=== PATIENT | female | born 1945 | race Caucasian/White ===

== ENCOUNTER 2018-07-26 14:28 | Inpatient (IN) | payer MEDICARE ==
[2018-07-26] MEDS ORDERED: SODIUM CHLORIDE 0.9% 1,000 ML IV STA ×2 (15:09)
[2018-07-26] MEDS ORDERED: ONDANSETRON 4 MG/2 ML VIAL IVP STA (15:09)
[2018-07-26] MEDS ORDERED: PANTOPRAZOLE 40 MG/10 ML VIAL IVP STA (15:10)
--- NOTE | 2018-07-26 15:10 | ED ---
Nausea/Vomiting/Diarrhea HPI - General Chief complaint: Nausea/Vomiting/Diarrhea Stated complaint: Vomiting Time Seen by Provider: 07/26/18 15:09 Source: patient, RN notes reviewed, old records reviewed Mode of arrival: wheelchair Limitations: no limitations - History of Present Illness Initial comments: This is a 72-year-old female the ER for evaluation. Patient resents today for no appetite nausea vomiting and diarrhea. Patient is recent travel history no known sick contacts no fevers. Patient currently states that she does not feel well patient's a poor historian secondary to dementia family is at bedside providing history states patient has multiple recent falls resulting in multiple fractures, was evaluated for a fall earlier in the week and was told no fracture at the time. Again patient's poor historian MD complaint: nausea, vomiting -: days(s) Description of Vomiting: watery Associated Abdominal Pain: Yes Severity: moderate Severity scale (1-10): 3 Quality: aching Improves with: none Worsens with: eating Associated Symptoms: denies other symptoms - Related Data Home Medications Medication Instructions Recorded Confirmed Albuterol Inhaler [Ventolin Hfa 1 - 2 puff INHALATION RT-Q6H PRN 07/26/18 Inhaler] Alendronate Sodium 70 mg PO WE 07/26/18 07/26/18 Donepezil [Aricept] 10 mg PO HS 07/26/18 07/26/18 Ergocalciferol (Vitamin D2) 50,000 unit PO WE 07/26/18 07/26/18 [Vitamin D2] Fluticasone Nasal [place] [Flonase 2 spr EA NOSTRIL DAILY PRN 07/26/18 07/26/18 Nasal [place]] Memantine [Namenda] 10 mg PO BID 07/26/18 07/26/18 Metoprolol Succinate (ER) [Toprol 50 mg PO BID 07/26/18 07/26/18 Xl] Ranitidine HCl [Zantac] 150 mg PO DAILY 07/26/18 07/26/18 Rivaroxaban [Xarelto] 15 mg PO BID 07/26/18 07/26/18 metFORMIN HCL ER [Glucophage Xr] 500 mg PO AC-BRKFST 07/26/18 07/26/18 Allergies Allergy/AdvReac Type Severity Reaction Status Date / Time clarithromycin Allergy Rash/Hives Verified 07/26/18 16:24 exenatide Allergy Rash/Hives Verified 07/26/18 16:24 lidocaine Allergy Rapid Verified 07/26/18 16:24 Heart Rate Sulfa (Sulfonamide Allergy Rash/Hives Verified 07/26/18 16:24 Antibiotics) tetracycline Allergy Rash/Hives Verified 07/26/18 16:24 trimethoprim Allergy Rash/Hives Verified 07/26/18 16:24 Review of Systems ROS Statement: Those systems with pertinent positive or pertinent negative responses have been documented in the HPI. ROS Other: All systems not noted in ROS Statement are negative. Past Medical History Additional Past Medical History / Comment(s): CLL, Dementia History of Any Multi-Drug Resistant Organisms: None Reported Past Surgical History: Cholecystectomy, Coronary Bypass/CABG, Orthopedic Surgery Past Psychological History: No Psychological Hx Reported Smoking Status: Never smoker Past Alcohol Use History: None Reported Past Drug Use History: None Reported General Exam Limitations: no limitations General appearance: alert, in no apparent distress Head exam: Present: atraumatic, normocephalic, normal inspection Eye exam: Present: normal appearance, PERRL, EOMI. Absent: scleral icterus, conjunctival injection, periorbital swelling ENT exam: Present: normal exam, mucous membranes moist Neck exam: Present: normal inspection. Absent: tenderness, meningismus, lymphadenopathy Respiratory exam: Present: normal lung sounds bilaterally. Absent: respiratory distress, wheezes, rales, rhonchi, stridor Cardiovascular Exam: Present: regular rate, normal rhythm, normal heart sounds. Absent: systolic murmur, diastolic murmur, rubs, gallop, clicks GI/Abdominal exam: Present: soft, normal bowel sounds. Absent: distended, tenderness, guarding, rebound, rigid Extremities exam: Present: normal inspection, full ROM, normal capillary refill. Absent: tenderness, pedal edema, joint swelling, calf tenderness Back exam: Present: normal inspection Neurological exam: Present: alert, oriented X3, CN II-XII intact Psychiatric exam: Present: normal affect, normal mood Skin exam: Present: warm, dry, intact, normal color. Absent: rash Course Vital Signs 07/26/18 14:58 Temperature 98.5 F Pulse Rate 79 Respiratory 18 Rate Blood Pressure 163/69 O2 Sat by Pulse 97 Oximetry - Reevaluation(s) Reevaluation #1: 07/26/18 16:11 Medical record is reviewed Reevaluation #2: 07/26/18 16:11 Patient symptoms are improved Medical Decision Making - Medical Decision Making 72 female the ER for status post multiple falls. Weakness. Patient will be admitted for nausea vomiting control IV hydration and pain control secondary to recent T11 fracture - Lab Data Result diagrams: 07/26/18 16:20 07/26/18 16:20 Lab Results 07/26/18 07/26/18 07/26/18 Range/Units 16:20 16:20 16:20 WBC 17.3 H (3.8-10.6) k/uL RBC 4.47 (3.80-5.40) m/uL Hgb 13.1 (11.4-16.0) gm/dL Hct 41.0 (34.0-46.0) % MCV 91.7 (80.0-100.0) fL MCH 29.2 (25.0-35.0) pg MCHC 31.9 (31.0-37.0) g/dL RDW 13.1 (11.5-15.5) % Plt Count 212 (150-450) k/uL Neutrophils % 39 % Lymphocytes % 55 % Monocytes % 2 % Eosinophils % 2 % Basophils % 1 % Neutrophils # 6.8 (1.3-7.7) k/uL Lymphocytes # 9.4 H (1.0-4.8) k/uL Monocytes # 0.4 (0-1.0) k/uL Eosinophils # 0.3 (0-0.7) k/uL Basophils # 0.1 (0-0.2) k/uL Manual Slide Review Performed Sodium 141 (137-145) mmol/L Potassium 3.9 (3.5-5.1) mmol/L Chloride 102 (98-107) mmol/L Carbon Dioxide 30 (22-30) mmol/L Anion Gap 9 mmol/L BUN 24 H (7-17) mg/dL Creatinine 1.05 H (0.52-1.04) mg/dL Est GFR (CKD-EPI)AfAm 62 (>60 ml/min/1.73 sqM) Est GFR (CKD-EPI)NonAf 54 (>60 ml/min/1.73 sqM) Glucose 124 H (74-99) mg/dL Calcium 9.4 (8.4-10.2) mg/dL Phosphorus 4.0 (2.5-4.5) mg/dL Magnesium 1.4 L (1.6-2.3) mg/dL Total Bilirubin 0.7 (0.2-1.3) mg/dL AST 28 (14-36) U/L ALT 16 (9-52) U/L Alkaline Phosphatase 112 (38-126) U/L Total Protein 6.9 (6.3-8.2) g/dL Albumin 4.0 (3.5-5.0) g/dL Lipase 55 (23-300) U/L Urine Color Light Yellow Urine Appearance Clear (Clear) Urine pH 5.0 (5.0-8.0) Ur Specific [place] 1.012 (1.001-1.035) Urine Protein Trace H (Negative) Urine Glucose (UA) Negative (Negative) Urine Ketones Trace H (Negative) Urine Blood Trace H (Negative) Urine Nitrite Negative (Negative) Urine Bilirubin Negative (Negative) Urine Urobilinogen <2.0 (<2.0) mg/dL Ur Leukocyte Esterase Negative (Negative) Urine RBC 1 (0-5) /hpf Urine WBC 5 (0-5) /hpf Ur Squamous Epith Cells 1 (0-4) /hpf Cellular Casts 1 (0) /lpf Hyaline Casts 23 H (0-2) /lpf Urine Mucus Rare H (None) /hpf - Radiology Data Radiology results: report reviewed (CT lumbosacral spine is acute T11 fracture) , image reviewed Disposition Clinical Impression: Dehydration, Gastroenteritis, Nausea and vomiting, Fracture of eleventh thoracic vertebra, Fall Disposition: ADMITTED IP TO THIS HOSP Condition: Fair Is patient prescribed a controlled substance at d/c from ED?: No Referrals: New Smith MD [Primary Care Provider] - 1-2 days
[2018-07-26] MEDS ORDERED: MORPHINE SULFATE 4 MG/ML SYRINGE IVP STA (15:36)
[2018-07-26 16:42] LABS: Basophils # (A) 0.1 k/uL (0-0.2); Basophils % (A) 1 %; Eosinophils # (A) 0.3 k/uL (0-0.7); Eosinophils % (A) 2 %; HGB 13.1 gm/dL (11.4-16.0); Lymphocytes # (A) 9.4 k/uL (1.0-4.8); Lymphocytes % (A) 55 %; MCH 29.2 pg (25.0-35.0); MCHC 31.9 g/dL (31.0-37.0); MCV 91.7 fL (80.0-100.0); Mean Platelet Volume 6.4; Monocytes # (A) 0.4 k/uL (0-1.0); Monocytes % (A) 2 %; Neutrophils # (A) 6.8 k/uL (1.3-7.7); Neutrophils % (A) 39 %; Platelet Count 212 k/uL (150-450); RBC 4.47 m/uL (3.80-5.40); RDW 13.1 % (11.5-15.5); WBC 17.3 k/uL (3.8-10.6)
[2018-07-26 16:44] LABS: Appearance,Urine Clear (Clear); Bilirubin,Urine Negative (Negative); Blood,Urine Trace (Negative); Cellular Casts,Urine 1 /lpf (0); Color,Urine Light Yellow; Glucose,Urine (UA) Negative (Negative); Hyaline Casts,Urine 23 /lpf (0-2); Ketones,Urine Trace (Negative); Leukocyte Esterase,Urine Negative (Negative); Mucus,Urine Rare /hpf; Nitrite,Urine Negative (Negative); Protein,Urine Trace (Negative); RBC,Urine 1 /hpf (0-5); Specific Gravity,Urine 1.012 (1.001-1.035); Squamous Epithelial Cell,Urine 1 /hpf (0-4); Urobilinogen,Urine <2.0 mg/dL (<2.0)
[2018-07-26 16:59] LABS: Calcium 9.4 mg/dL (8.4-10.2); Magnesium 1.4 mg/dL (1.6-2.3); Potassium 3.9 mmol/L (3.5-5.1); Total Bilirubin 0.7 mg/dL (0.2-1.3); Total Protein 6.9 g/dL (6.3-8.2)
--- NOTE | 2018-07-26 18:04 | CT ---
EXAMINATION TYPE: CT lumbar spine wo con DATE OF EXAM: 07/26/2018 COMPARISON: None HISTORY: Fall 1 week ago per patient daughter CT DLP: 887.9 mGycm CONTRAST: None TECHNIQUE: CT of the lumbar spine is performed on a spiral scan at 3 mm thick sections. Reconstructed images are performed in the coronal and sagittal planes. Pedicle screws at T10-11 and 12 causes sanjeev m hardening artifact and limited evaluation. FINDINGS: T10-11: No focal disc herniation or significant disc bulge is evident. No spinal canal stenosis or ne ural foraminal stenosis is present. Pedicle screws are present. T11: There is a severe compression deformity of T11. There is an estimated 0.5 cm posterior wall disp lacement. No definite cord contact is identified. Spinal canal stenosis is not present. T11-12: No focal disc herniation or significant disc bulge is evident. No spinal canal stenosis or ne ural foraminal stenosis present. Pedicle screws are present T12-L1: No focal disc herniation or significant disc bulge is evident. No spinal canal stenosis or ne ural foraminal stenosis is present. L1-L2: No focal disc herniation or significant disc bulge is evident. No spinal canal stenosis or angie ral foraminal stenosis is present. L2-L3: Mild disc bulge is present with anterior thecal sac compression. No spinal canal stenosis or n eural foraminal stenosis is. L3-L4: Mild disc bulge is present with anterior thecal sac flattening. No spinal canal stenosis or ne ural foraminal stenosis is present. L4-L5: Disc uncovering is present. Minimal grade 1 spondylolisthesis may be present. No spinal canal stenosis is present. There is some right foraminal narrowing inferiorly. Left foramen is patent. L5-S1: Endplate spurring has anterior thecal sac contact. No AP spinal canal stenosis is present. Sev ere left foraminal stenosis is present from endplate spurring. Right foramen is patent. Scoliosis is present through the lumbar spine. IMPRESSION: 1. Severe compression deformity of T11 there is a 0.5 cm posterior wall displacement. Comparison to e valuate for interval change is not available at this location. 2. Severe left foraminal stenosis L5-S1 secondary to endplate spurring. 3. There is some mild disc bulging discussed above with anterior thecal sac contact questionable clin ical significance.
--- NOTE | 2018-07-26 18:06 | CT ---
EXAMINATION TYPE: CT sacrum wo con DATE OF EXAM: 07/26/2018 COMPARISON: No available at this location. Lumbar portion is evaluated on the CT lumbar spine. HISTORY: Fall 1 week ago per patient daughter CT DLP: 887.9 mGycm Automated exposure control for dose reduction was used. TECHNIQUE: Axial images were obtained at 3 mm thick sections. Reconstructed images in the coronal and sagittal plane are reviewed on the computer. FINDINGS: The L5-S1 level and more superiorly is evaluated on the lumbar spine images. Sacrum appears intact. No acute fractures are evident. Sacral canal appears patent. Coccyx as visuali zed appears intact. Sacroiliac joint degenerative changes are noted. IMPRESSION: NORMAL CT SACRUM.
[2018-07-26] MEDS ORDERED: MAGNESIUM OXIDE 400 MG TAB PO STA (18:10)
[2018-07-26] MEDS ORDERED: MORPHINE SULFATE 2 MG/ML SYRINGE IVP STA (18:43)
[2018-07-26] MEDS ORDERED: DEXTROSE 5%-0.45% NACL 1,000 ML IV ONE (18:53)
[2018-07-26] MEDS ORDERED: MORPHINE SULFATE 2 MG/ML SYRINGE IVP PRN (18:53)
[2018-07-26] MEDS ORDERED: ONDANSETRON 4 MG/2 ML VIAL IVP PRN (18:54)
[2018-07-26 21:47] VITALS: BMI 43.2
[2018-07-27] MEDS ORDERED: ALBUTEROL NEBULIZED 2.5 MG/3 ML INHALATION PRN (00:07)
[2018-07-27] MEDS ORDERED: FLUTICASONE 50MCG/SPRAY NASAL 16GM EA NOSTRIL PRN (00:07)
[2018-07-27 00:14] LABS: Glucose,Whole Blood 101 mg/dL (75-99)
[2018-07-27 04:36] LABS: Glucose,Whole Blood 99 mg/dL (75-99)
[2018-07-27 07:59] LABS: Glucose,Whole Blood 107 mg/dL (75-99)
--- NOTE | 2018-07-27 08:34 | HP ---
HISTORY AND PHYSICAL DATE OF SERVICE: 07/26/2018 CHIEF COMPLAINT: Fall and back pain. HISTORY OF PRESENT ILLNESS: This 72-year-old woman with past medical history of multiple medical problems including history of diabetes mellitus, chronic leukemia, history of dementia, cholecystectomy, CAD, CABG, anxiety, depression being followed by Dr. Nirmal Smith in the outpatient setting apparently had multiple falls at home. The patient complains of weakness and patient fell and patient complaining of back pain. Patient had dementia and the family took the patient to [facility] and further evaluation. Lumbar spine CAT scan was done which showed evidence of severe compression fracture at T11 with posterior wall displacement, severe left foraminal stenosis L5-S1 was also noted. Patient was admitted for further evaluation and treatment. There is no history of any fever, rigors. No history of headache, loss of consciousness or seizures. A CT of the sacrum was also done, which showed normal findings. There is no history of fever, rigors or chills. The patient is unable to give coherent history. Most of the history is taken by my discussion with staff and review of this chart at this time. PAST MEDICAL HISTORY: Diabetes mellitus type 2, CLL, dementia, CAD CABG, history of anxiety, depression. MEDICATIONS: Home medications are reviewed include: 1. Metformin 500 mg with breakfast. 2. Xarelto 15 mg b.i.d. 3. Zantac 150 mg daily. 4. Toprol XL 50 mg b.i.d. 5. Namenda 10 mg b.i.d. 6. Flonase daily p.r.n. 7. Vitamin D2; 50,000 8. Aricept 10 mg q.h.s. 9. Alendronate sodium 70 mg 10.Albuterol p.r.n. ALLERGIES: Allergies are CLARITHROMYCIN, EXENATIDE, LATEX, LIDOCAINE,SULFA, TETRACYCLINE, TRIMETHOPRIM. FAMILY HISTORY: History of diabetes, dementia, Alzheimer's. SOCIAL HISTORY: No history of smoking. No history of alcohol intake. REVIEW OF SYSTEMS: Could not be taken at length because of the change in mental status. PHYSICAL EXAMINATION: The patient is conscious, but confused. Pulse is 69, pressure 155/63, respirations 16, temperature 98.6, pulse ox 98% on room air. HEENT: Conjunctivae normal. Oral mucosa moist. Neck is no jugular venous distention. No carotid bruit. No lymph node enlargement. CARDIOVASCULAR: S1, S2 muffled. RESPIRATORY: Breath sounds diminished at the bases. A few scattered rhonchi and crackles. ABDOMEN: Soft, nontender. No mass palpable. LEGS: No edema. No swelling. NERVOUS SYSTEM: Higher functions as mentioned. Moves all 4 limbs. No focal motor or sensory deficit. LYMPHATICS: No lymphadenopathy of the neck, axillae or groin. SKIN: No ulcer, rash or bleeding. JOINTS: No active deforming arthropathy. LABS: Labs are at this time shows WBC 17.3, hemoglobin 13.1. is 1.05. Magnesium 1.4. ASSESSMENT: 1. Fall and back pain and compression fracture of the T11. 2. Severe degenerative joint disease with left foraminal stenosis L5-S1. 3. Dementia. 4. Change in mental status, metabolic encephalopathy, acute on chronic. 5. Diabetes mellitus type 2. 6. Chronic leukemia. 7. History of coronary artery disease, CABG. 8. History of degenerative joint disease. 9. History of cholecystectomy. 10.Anxiety, depression. 11.Hypomagnesemia. RECOMMENDATIONS AND DISCUSSION: This 72-year-old woman who presented with multiple complex medical issues, will monitor the patient closely. Continue the current medications. Continue symptomatic treatment. Otherwise at this time, I would recommend pain medications, orthopedic evaluation, PT, OT evaluation. gas worker to evaluate the home situation. Prognosis guarded because of multiple complex medical issues as mentioned earlier. Further management to follow. A copy of dictation forwarded to Dr. Nirmal Smith who is the primary physician. Will replace the magnesium. MMODL / IJN: [id number] / [facility]
[2018-07-27] MEDS ORDERED: PANTOPRAZOLE 40 MG/10 ML VIAL IVP SCH (09:00)
[2018-07-27] MEDS: METOPROLOL SUCCINATE (ER) 50 MG TAB.ER.24H PO SCH ×2 (09:01→22:15)
[2018-07-27] MEDS: metFORMIN 500 MG TAB PO SCH ×2 (09:01→17:48)
[2018-07-27] MEDS: MEMANTINE 10 MG TAB PO SCH ×2 (09:01→22:15)
[2018-07-27] MEDS: ENOXAPARIN 40 MG/0.4 ML SYRINGE SQ SCH (09:01)
[2018-07-27] MEDS: FAMOTIDINE 20 MG TAB PO SCH (09:01)
[2018-07-27] MEDS ORDERED: HYDROcodone/APAP 5-325MG 1 EACH TAB PO PRN (10:23)
[2018-07-27] MEDS ORDERED: Magnesium Replacement Protocol 1 EACH MISC MISCELLANE PRN (10:24)
[2018-07-27 12:57] LABS: HCT 33.7 % (34.0-46.0); HGB 11.2 gm/dL (11.4-16.0); MCH 30.7 pg (25.0-35.0); MCHC 33.2 g/dL (31.0-37.0); MCV 92.5 fL (80.0-100.0); Mean Platelet Volume 7.3; Platelet Count 163 k/uL (150-450); RBC 3.64 m/uL (3.80-5.40); RDW 13.2 % (11.5-15.5); WBC 12.3 k/uL (3.8-10.6)
[2018-07-27 13:10] LABS: Calcium 8.9 mg/dL (8.4-10.2); Magnesium 1.4 mg/dL (1.6-2.3); Potassium 3.6 mmol/L (3.5-5.1)
[2018-07-27] MEDS ORDERED: hydrALAZINE HCL 20 MG/ML 1 ML VIAL IVP PRN (15:43)
[2018-07-27] MEDS: MAGNESIUM SULFATE-D5W PMX 1 GM in DEXTROSE/WATER 1 100ML.BAG IVPB SCH ×3 (15:59→18:52)
[2018-07-27] MEDS: KETOROLAC 30 MG/ML 1 ML VIAL IVP PRN (16:39)
--- NOTE | 2018-07-27 20:22 | PN ---
PROGRESS NOTE DATE OF SERVICE: 07/27/2018 This 72-year-old woman who was admitted with fall and back pain has been closely monitored. No chest pain. No palpitations. No fever. Lumbar spine CAT scan noted. EXAM: Alert and oriented x3. Pulse is 95, blood pressure 195/81, respirations 16, temperature 97.4, pulse ox 98% on room air. HEENT: Conjunctivae normal. NECK: No jugular venous distention. CARDIOVASCULAR: S1, S2. RESPIRATORY: Breath sounds diminished in the bases. A few scattered rhonchi. No crackles. ABDOMEN: Soft, nontender. LEGS: No edema. NERVOUS SYSTEM: Mild diffuse weakness. LABS: WBC 12.2, hemoglobin 11.2. UA noted. Otherwise glucose 123 and magnesium is 1.4. ASSESSMENT: 1. Fall and back pain with compression fracture of T11. 2. Severe degenerative joint disease with foraminal stenosis of L5-S1. 3. Dementia. 4. Hypomagnesemia. 5. History of change in mental status, metabolic encephalopathy, acute on chronic. 6. Diabetes mellitus type 2. 7. Chronic leukemia. 8. History of coronary artery disease, CABG. 9. History of degenerative joint disease. 10.History of cholecystectomy. 11.Anxiety and depression. 12.Gait dysfunction. 13.Hypomagnesia. 14.Gait dysfunction. 15.NO CODE, NO CPR, NO VENT. RECOMMENDATIONS AND DISCUSSION: This 72-year-old woman who presented with multiple complex medical issues, we will monitor the patient closely. Continue the current management and symptomatic treatment. Continue with magnesium protocol. Otherwise also recommend PT, OT evaluation and consider possible ECF rehab. Otherwise, the patient is from a shelter. Discussed with her friends and the daughter has power of well driller helper. We will continue to monitor. Dr. Ron's evaluation is in progress. Further recommendations to follow. MMODL / IJN: [id number] /
[2018-07-27] MEDS ORDERED: DONEPEZIL 10 MG TAB PO SCH (21:00)
[2018-07-27 21:19] LABS: Glucose,Whole Blood 121 mg/dL (75-99)
--- NOTE | 2018-07-27 22:05 | P.CNOR ---
History of Present Illness - [facility] Consult date: 07/27/18 Requesting physician: Zeinab Duron Consult reason: back pain (Thoracic back pain), other History of present illness: Patient is a very pleasant 72-year-old female who is seen and examined at bedside for further evaluation regards to her thoracic spine. Patient is known to have dementia and is a poor historian. She is very pleasant at the bedside and does attempt to answer questions appropriately. She was brought to the emergency department yesterday, 07/26/2018, for nausea, vomiting, diarrhea, and no appetite. Per ER documentation, family had stated patient had been falling multiple times recently resulting in multiple fractures. Patient was previously evaluated earlier in the week and was told there is no fractures at that time. CT of the sacrum and lumbar spine was performed during her evaluation in the ER. Evidence of a T11 compression fracture deformity was found. She is known to have previously undergone Thoracic spine fusion at T10- 11 and T11-12 with hardware intact. She states she does recall previous surgical intervention at her thoracic spine but is unaware of any of the details. Consultation was placed for orthopedic spine. Patient states at the bedside she is not currently experiencing any significant back pain in her thoracic spine or lumbar spine. She denies any lower extremity weakness or radiculopathy bilaterally. She is moving her legs independently in bed without difficulty. She is nauseous at the bedside today. Nursing states patient is currently being worked up for gastritis. She also has elevated blood pressure currently and medicine is being contacted by nursing. She has a past medical history including diabetes mellitus, dementia, and chronic lymphoid leukemia. Past Medical History Past Medical History: Diabetes Mellitus Additional Past Medical History / Comment(s): CLL, Dementia History of Any Multi-Drug Resistant Organisms: None Reported Past Surgical History: Cholecystectomy, Coronary Bypass/CABG, Orthopedic Surgery Additional Past Surgical History / Comment(s): july rt hip fx, october lt femur 2017 Past Psychological History: Anxiety, Depression Smoking Status: Never smoker Past Alcohol Use History: None Reported Past Drug Use History: None Reported - Past Family History Mother Family Medical History: Diabetes Mellitus Additional Family Medical History / Comment(s): dementia alzheimers Father Family Medical History: Diabetes Mellitus Additional Family Medical History / Comment(s): dementia alzheimers Medications and Allergies Home Medications Medication Instructions Recorded Confirmed Type Albuterol Inhaler [Ventolin Hfa 1 - 2 puff INHALATION RT-Q6H PRN 07/26/18 History Inhaler] Alendronate Sodium 70 mg PO WE 07/26/18 07/26/18 History Donepezil [Aricept] 10 mg PO HS 07/26/18 07/26/18 History Ergocalciferol (Vitamin D2) 50,000 unit PO WE 07/26/18 07/26/18 History [Vitamin D2] Fluticasone Nasal [place] [Flonase 2 spr EA NOSTRIL DAILY PRN 07/26/18 07/26/18 History Nasal [place]] Memantine [Namenda] 10 mg PO BID 07/26/18 07/26/18 History Metoprolol Succinate (ER) [Toprol 50 mg PO BID 07/26/18 07/26/18 History Xl] Ranitidine HCl [Zantac] 150 mg PO DAILY 07/26/18 07/26/18 History Rivaroxaban [Xarelto] 15 mg PO BID 07/26/18 07/26/18 History metFORMIN HCL ER [Glucophage Xr] 500 mg PO AC-BRKFST 07/26/18 07/26/18 History Allergies Allergy/AdvReac Type Severity Reaction Status Date / Time clarithromycin Allergy Rash/Hives Verified 07/26/18 16:24 exenatide Allergy Rash/Hives Verified 07/26/18 16:24 latex Allergy Rash/Hives Verified 07/26/18 21:48 lidocaine Allergy Rapid Verified 07/26/18 16:24 Heart Rate Sulfa (Sulfonamide Allergy Rash/Hives Verified 07/26/18 16:24 Antibiotics) tetracycline Allergy Rash/Hives Verified 07/26/18 16:24 trimethoprim Allergy Rash/Hives Verified 07/26/18 16:24 Physical Examination Physical exam: Patient is awake, alert, and oriented 3 Vital signs stable Good chest excursion with deep inspiration and expiration Examination of thoracolumbar spine reveals skin is intact with no abrasions, lacerations, or bruises; no erythema, purulence or signs of infection Evidence of a well-healed incision along the lower thoracic spine Dorsiflexion, plantarflexion, and extensor hallucis longus positive sustained bilaterally Lower extremity strength 5/5 bilaterally Patient is able to move legs independently in bed without significant difficulty No lower extremity hyperreflexia bilaterally No signs or symptoms of DVT; no calf pain No pain with internal and external rotation of the hips bilaterally Neurovascularly intact Results Pertinent studies: CT of the lumbar spine taken on 07/26/2018: Evidence of pedicle screws at T10, T11, and T12 which appear to be appropriate alignment and position; rods between pedicle screws appear to be in good alignment and position; Hardware appears well sceure; Evidence of T11 compression fracture deformity that appears chronic in nature; no evidence of compression fracture deformity at the lumbosacral spine; L5-S1 degenerative disc disease and left foraminal stenosis CT of the sacrum taken on 07/26/2018: Normal sacrum CT; no acute fractures evident; Patent sacral canal; Visualized coccyx appears intact; sacroiliac joint degenerative changes noted - Labs Labs: Abnormal Lab Results - Last 24 Hours (Table) 07/26/18 07/26/18 07/26/18 Range/Units 16:20 16:20 16:20 WBC 17.3 H (3.8-10.6) k/uL RBC (3.80-5.40) m/uL Hgb (11.4-16.0) gm/dL Hct (34.0-46.0) % Lymphocytes # 9.4 H (1.0-4.8) k/uL Carbon Dioxide (22-30) mmol/L BUN 24 H (7-17) mg/dL Creatinine 1.05 H (0.52-1.04) mg/dL Glucose 124 H (74-99) mg/dL POC Glucose (mg/dL) (75-99) mg/dL Magnesium 1.4 L (1.6-2.3) mg/dL Urine Protein Trace H (Negative) Urine Ketones Trace H (Negative) Urine Blood Trace H (Negative) Hyaline Casts 23 H (0-2) /lpf Urine Mucus Rare H (None) /hpf 07/27/18 07/27/18 07/27/18 Range/Units 00:12 07:38 12:27 WBC 12.3 H (3.8-10.6) k/uL RBC 3.64 L (3.80-5.40) m/uL Hgb 11.2 L (11.4-16.0) gm/dL Hct 33.7 L (34.0-46.0) % Lymphocytes # (1.0-4.8) k/uL Carbon Dioxide (22-30) mmol/L BUN (7-17) mg/dL Creatinine (0.52-1.04) mg/dL Glucose (74-99) mg/dL POC Glucose (mg/dL) 101 H 107 H (75-99) mg/dL Magnesium (1.6-2.3) mg/dL Urine Protein (Negative) Urine Ketones (Negative) Urine Blood (Negative) Hyaline Casts (0-2) /lpf Urine Mucus (None) /hpf 07/27/18 Range/Units 12:27 WBC (3.8-10.6) k/uL RBC (3.80-5.40) m/uL Hgb (11.4-16.0) gm/dL Hct (34.0-46.0) % Lymphocytes # (1.0-4.8) k/uL Carbon Dioxide 32 H (22-30) mmol/L BUN (7-17) mg/dL Creatinine (0.52-1.04) mg/dL Glucose 123 H (74-99) mg/dL POC Glucose (mg/dL) (75-99) mg/dL Magnesium 1.4 L (1.6-2.3) mg/dL Urine Protein (Negative) Urine Ketones (Negative) Urine Blood (Negative) Hyaline Casts (0-2) /lpf Urine Mucus (None) /hpf H & H 07/26/18 07/27/18 Range/Units 16:20 12:27 Hgb 13.1 11.2 L (11.4-16.0) gm/dL Hct 41.0 33.7 L (34.0-46.0) % Result Diagrams: 07/27/18 12:27 07/27/18 12:27 Assessment and Plan Assessment: Assessment: History of thoracic fusion T10-11 and T11-12 Chronic T11 compression fracture deformity Thoracic back pain L5-S1 degenerative disc disease and foraminal stenosis History of multiple falls Dementia Current nausea and vomiting Hypertension History of diabetes mellitus History of chronic lymphoid leukemia (1) Compression fracture of T11 vertebra Current Visit: Yes Status: Acute Code(s): S22.080A - WEDGE COMPRESSION FRACTURE OF T11-T12 VERTEBRA, INIT SNOMED Code(s): 977531091 (2) History of thoracic spinal fusion Current Visit: Yes Status: Acute Code(s): Z98.1 - ARTHRODESIS STATUS SNOMED Code(s): 40647526159393 (3) Disc disease, degenerative, lumbar or lumbosacral Current Visit: Yes Status: Acute Code(s): M51.37 - OTHER INTERVERTEBRAL DISC DEGENERATION, LUMBOSACRAL REGION SNOMED Code(s): 90648926 (4) Thoracic back pain Current Visit: Yes Status: Acute Code(s): M54.6 - PAIN IN THORACIC SPINE SNOMED Code(s): 125933683 (5) Multiple falls Current Visit: Yes Status: Acute Code(s): R29.6 - REPEATED FALLS SNOMED Code(s): 391962270 (6) Dementia Current Visit: Yes Status: Acute Code(s): F03.90 - UNSPECIFIED DEMENTIA WITHOUT BEHAVIORAL DISTURBANCE SNOMED Code(s): 12951130 (7) History of chronic lymphoid leukemia Current Visit: Yes Status: Acute Code(s): Z85.6 - PERSONAL HISTORY OF LEUKEMIA SNOMED Code(s): 09342750640938 (8) Hypertension Current Visit: Yes Status: Acute Code(s): I10 - ESSENTIAL (PRIMARY) HYPERTENSION SNOMED Code(s): 63230769 (9) Nausea and vomiting Current Visit: Yes Status: Acute Code(s): R11.2 - NAUSEA WITH VOMITING, UNSPECIFIED SNOMED Code(s): 09171586 (10) History of diabetes mellitus Current Visit: Yes Status: Acute Code(s): Z86.39 - PERSONAL HISTORY OF ENDO , NUTRITIONAL AND METABOLIC DISEASE SNOMED Code(s): 894799485 Plan: Plan: 1. Patient is a poor historian with her diagnosis of dementia but answers questions appropriately at the bedside that she is able to answer and does not answer questions she states she does not know the answers to. She is known to have previously undergone thoracic fusion at T10-T11 and T11-12. Imaging shows evidence of compression fracture deformity at T11 which appears chronic in nature. Patient is not currently experiencing any significant thoracic or lumbar pain during physical examination the bedside. It would be difficult to determine currently if bracing would provide any significant improvement of her symptoms. She does not appear to have an acute fracture at her lower thoracic spine. She does not have evidence of compression fracture at her lumbosacral spine. At this time, we are not currently planning to obtain further injuring or planning for other treatments in regards to her thoracic or lumbosacral spines. Patient may continue with activities to tolerance in regards to her spine. We are not planning for any surgical intervention at her thoracic or lumbosacral spines. At this time, we will sign off from an orthopedic spine standpoint. Patient is clear for discharge once cleared by other medical providers. In the outpatient setting patient may follow with the surgeon to previously performed her surgery. She may follow-up with us on an as-needed basis. 2. Dr. Duron in medicine will continue to follow the patient for her other significant medical diagnoses including nausea and vomiting and current hypertension 3. Patient has been discussed in detail with Dr. Bj Ron and he agrees with this plan. Time with Patient: Greater than 30 (Including obtaining history, physical examination, reviewing imaging, and dictation)
[2018-07-28] MEDS ORDERED: PANTOPRAZOLE 40 MG TABLET PO SCH (07:30)
[2018-07-28 07:33] LABS: Glucose,Whole Blood 97 mg/dL (75-99)
[2018-07-28 08:03] VITALS: BP 171/66; PULSE 44; RESP 16; TEMP 97.8
[2018-07-28] MEDS: FAMOTIDINE 20 MG TAB PO SCH (08:54)
[2018-07-28] MEDS: metFORMIN 500 MG TAB PO SCH (08:54)
[2018-07-28] MEDS: METOPROLOL SUCCINATE (ER) 50 MG TAB.ER.24H PO SCH (08:56)
[2018-07-28] MEDS: MEMANTINE 10 MG TAB PO SCH (08:57)
[2018-07-28] MEDS: ENOXAPARIN 40 MG/0.4 ML SYRINGE SQ SCH (08:57)
[2018-07-28] MEDS: KETOROLAC 30 MG/ML 1 ML VIAL IVP PRN (08:58)
[2018-07-28 10:12] LABS: Calcium 9.1 mg/dL (8.4-10.2); Magnesium 2.2 mg/dL (1.6-2.3); Potassium 4.1 mmol/L (3.5-5.1)
[2018-07-28 10:52] LABS: Basophils # (A) 0.1 k/uL (0-0.2); Basophils % (A) 1 %; Eosinophils # (A) 0.3 k/uL (0-0.7); Eosinophils % (A) 3 %; HCT 36.2 % (34.0-46.0); HGB 11.5 gm/dL (11.4-16.0); Lymphocytes # (A) 6.1 k/uL (1.0-4.8); Lymphocytes % (A) 59 %; MCH 29.7 pg (25.0-35.0); MCHC 31.7 g/dL (31.0-37.0); MCV 93.7 fL (80.0-100.0); Mean Platelet Volume 6.9; Monocytes # (A) 0.3 k/uL (0-1.0); Monocytes % (A) 3 %; Neutrophils # (A) 3.4 k/uL (1.3-7.7); Neutrophils % (A) 33 %; Platelet Count 178 k/uL (150-450); RBC 3.86 m/uL (3.80-5.40); RDW 13.2 % (11.5-15.5); WBC 10.3 k/uL (3.8-10.6)
[2018-07-28 11:34] LABS: Poikilocytosis (M) Present
[2018-07-28 11:55] LABS: Glucose,Whole Blood 117 mg/dL (75-99)
[2018-07-29] MEDS ORDERED: NON-FORMULARY DRUG (Alendronate Sodium [Alendronate Sodium] 70 MG) PO SCH (00:07)
[2018-07-29] MEDS ORDERED: ERGOCALCIFEROL 50,000 UNIT CAP PO SCH (09:00)
== END 2018-07-28 14:18 | disposition home health service (06) | DRG 551 ==
LOC: EC 14:28 → 4MS4W 19:07 → OBSVTOIN 07-27 11:04
PROVIDERS: ADMIT Hospitalist; ATTEND Hospitalist
DX: S22.080A Wedge compression fracture of T11-T12 vertebra, initial encounter for closed fracture (principal); G93.41 Metabolic encephalopathy; C95.10 Chronic leukemia of unspecified cell type not having achieved remission; E83.42 Hypomagnesemia; E86.0 Dehydration; E11.9 Type 2 diabetes mellitus without complications; F03.90 Unspecified dementia, unspecified severity, without behavioral disturbance, psychotic disturbance, mood disturbance, and anxiety; M51.37 Other intervertebral disc degeneration, lumbosacral region; I10 Essential (primary) hypertension; I25.10 Atherosclerotic heart disease of native coronary artery without angina pectoris; K52.9 Noninfective gastroenteritis and colitis, unspecified; M48.07 Spinal stenosis, lumbosacral region; F32.9 Major depressive disorder, single episode, unspecified; F41.9 Anxiety disorder, unspecified; M19.90 Unspecified osteoarthritis, unspecified site; R26.9 Unspecified abnormalities of gait and mobility; R29.6 Repeated falls; Z79.84 Long term (current) use of oral hypoglycemic drugs; Z79.01 Long term (current) use of anticoagulants; Z79.83 Long term (current) use of bisphosphonates; Z79.899 Other long term (current) drug therapy; Z91.81 History of falling; Z90.49 Acquired absence of other specified parts of digestive tract; Z95.1 Presence of aortocoronary bypass graft; Z87.81 Personal history of (healed) traumatic fracture; Z98.1 Arthrodesis status; Z88.4 Allergy status to anesthetic agent; Z88.1 Allergy status to other antibiotic agents; Z91.040 Latex allergy status; Z88.2 Allergy status to sulfonamides; Z88.8 Allergy status to other drugs, medicaments and biological substances; W19.XXXA Unspecified fall, initial encounter; Y92.199 Unspecified place in other specified residential institution as the place of occurrence of the external cause; Z83.3 Family history of diabetes mellitus; Z82.0 Family history of epilepsy and other diseases of the nervous system
CPT/HCPCS: 36415; 72131; 72192; 80048; 80053; 81001; 83690; 83735; 84100; 85025; 85027; 96361; 96374; 96375; 99285

== ENCOUNTER 2018-07-31 21:29 | Emergency (ER) | payer MEDICARE ==
[2018-07-31 21:42] VITALS: TEMP 97.5
[2018-07-31] MEDS ORDERED: ONDANSETRON 4 MG/2 ML VIAL IVP STA (21:49)
--- NOTE | 2018-07-31 22:08 | ED ---
Nausea/Vomiting/Diarrhea HPI - General Chief complaint: Nausea/Vomiting/Diarrhea Stated complaint: Nausea/Vomiting Time Seen by Provider: 07/31/18 21:39 Source: patient, EMS Mode of arrival: EMS Limitations: altered mental status (Dementia) - History of Present Illness Initial comments: This patient is a 72-year-old woman who is accompanied by 2 sisters. The patient has significant underlying dementia as result of her sisters state that her main complaint is vomiting. They state that the patient has not been able to keep down much of anything since leaving the hospital. She had been in the hospital coming in on July 26 for the same complaint. The patient reportedly was diagnosed with gastritis. The patient's primary physician has reportedly been having her take Pepto-Bismol 30 mL every hour. The patient reportedly is vomiting this promptly. When I interview the patient, she is denying any complaints and does not know why she is here. She does recognize that she is in a health care facility. MD complaint: nausea, vomiting Onset/Timin -: week(s) Description of Vomiting: food contents Associated Abdominal Pain: No Consistency: constant Improves with: none Worsens with: none Associated Symptoms: nausea/vomiting - Related Data Home Medications Medication Instructions Recorded Confirmed Albuterol Inhaler [Ventolin Hfa 1 - 2 puff INHALATION RT-Q6H PRN 07/26/18 Inhaler] Donepezil [Aricept] 10 mg PO HS 07/26/18 07/31/18 Ergocalciferol (Vitamin D2) 50,000 unit PO Q7D 07/26/18 07/31/18 [Vitamin D2] Fluticasone Nasal [place] [Flonase 2 spr EA NOSTRIL DAILY PRN 07/26/18 07/31/18 Nasal [place]] Memantine [Namenda] 10 mg PO BID 07/26/18 07/31/18 Metoprolol Succinate (ER) [Toprol 50 mg PO BID 07/26/18 07/31/18 XL] Ranitidine HCl [Zantac] 150 mg PO DAILY 07/26/18 07/31/18 Rivaroxaban [Xarelto] 15 mg PO BID 07/26/18 07/31/18 metFORMIN HCL ER [Glucophage Xr] 1,000 mg PO AC-BRKFST 07/26/18 07/31/18 Cetirizine HCl [Zyrtec] 10 mg PO HS 07/31/18 07/31/18 Citalopram Hydrobromide [CeleXA] 10 mg PO DAILY 07/31/18 07/31/18 L.acidoph,Paracasei, B.lactis 1 cap PO BID 07/31/18 07/31/18 [Probiotic] Previous Rx's Medication Instructions Recorded Dicyclomine [Bentyl] 20 mg PO QID #15 tablet 08/01/18 Ondansetron Odt [Zofran ODT] 4 mg PO Q8HR PRN #12 tab 08/01/18 traMADol HCl [Ultram] 50 mg PO Q6H PRN #20 tab 08/01/18 Allergies Allergy/AdvReac Type Severity Reaction Status Date / Time clarithromycin Allergy Rash/Hives Verified 07/31/18 21:47 exenatide Allergy Rash/Hives Verified 07/31/18 21:47 latex Allergy Rash/Hives Verified 07/31/18 21:47 lidocaine Allergy Rapid Verified 07/31/18 21:47 Heart Rate Sulfa (Sulfonamide Allergy Rash/Hives Verified 07/31/18 21:47 Antibiotics) tetracycline Allergy Rash/Hives Verified 07/31/18 21:47 trimethoprim Allergy Rash/Hives Verified 07/31/18 21:47 Review of Systems ROS Statement: Those systems with pertinent positive or pertinent negative responses have been documented in the HPI. ROS Other: All systems not noted in ROS Statement are negative. Limitations: ROS unobtainable due to patients medical condition (Dementia) Constitutional: Denies: fever Respiratory: Denies: cough, dyspnea Cardiovascular: Denies: chest pain, edema Gastrointestinal: Reports: vomiting. Denies: abdominal pain Genitourinary: Denies: hematuria Musculoskeletal: Denies: back pain Neurological: Denies: headache Past Medical History Past Medical History: Diabetes Mellitus Additional Past Medical History / Comment(s): CLL, Dementia History of Any Multi-Drug Resistant Organisms: None Reported Past Surgical History: Cholecystectomy, Coronary Bypass/CABG, Orthopedic Surgery Additional Past Surgical History / Comment(s): july rt hip fx, october lt femur 2018 Past Psychological History: Anxiety, Depression Smoking Status: Never smoker Past Alcohol Use History: None Reported Past Drug Use History: None Reported - Past Family History Mother Family Medical History: Diabetes Mellitus Additional Family Medical History / Comment(s): dementia alzheimers Father Family Medical History: Diabetes Mellitus Additional Family Medical History / Comment(s): dementia alzheimers General Exam Limitations: no limitations General appearance: alert, in no apparent distress Head exam: Present: atraumatic, normocephalic Eye exam: Present: normal appearance ENT exam: Present: normal oropharynx Respiratory exam: Present: normal lung sounds bilaterally. Absent: respiratory distress, wheezes, rales, rhonchi, stridor Cardiovascular Exam: Present: regular rate, normal rhythm, normal heart sounds. Absent: systolic murmur, diastolic murmur, rubs, gallop GI/Abdominal exam: Present: soft. Absent: distended, tenderness, guarding, rebound, rigid, mass Extremities exam: Present: normal inspection, normal capillary refill. Absent: pedal edema, calf tenderness Back exam: Present: normal inspection. Absent: CVA tenderness (R), CVA tenderness (L) Neurological exam: Present: alert. Absent: motor sensory deficit Skin exam: Present: warm, dry, intact, normal color. Absent: rash Course Vital Signs 07/31/18 07/31/18 21:30 22:37 Temperature 97.5 F L Pulse Rate 61 66 Respiratory 18 18 Rate Blood Pressure 177/71 O2 Sat by Pulse 100 Oximetry Medical Decision Making - Lab Data Result diagrams: 07/31/18 22:18 07/31/18 22:18 Lab Results 07/31/18 07/31/18 07/31/18 Range/Units 22:18 22:18 22:55 WBC 13.8 H (3.8-10.6) k/uL RBC 4.23 (3.80-5.40) m/uL Hgb 12.6 (11.4-16.0) gm/dL Hct 38.8 (34.0-46.0) % MCV 91.7 (80.0-100.0) fL MCH 29.8 (25.0-35.0) pg MCHC 32.5 (31.0-37.0) g/dL RDW 13.2 (11.5-15.5) % Plt Count 187 (150-450) k/uL Neutrophils % 32 % Lymphocytes % 61 % Monocytes % 3 % Eosinophils % 2 % Basophils % 1 % Neutrophils # 4.4 (1.3-7.7) k/uL Lymphocytes # 8.5 H (1.0-4.8) k/uL Monocytes # 0.4 (0-1.0) k/uL Eosinophils # 0.3 (0-0.7) k/uL Basophils # 0.1 (0-0.2) k/uL Manual Slide Review Performed Poikilocytosis (manual Present Rouleaux Present Sodium 140 (137-145) mmol/L Potassium 3.5 (3.5-5.1) mmol/L Chloride 101 (98-107) mmol/L Carbon Dioxide 31 H (22-30) mmol/L Anion Gap 8 mmol/L BUN 16 (7-17) mg/dL Creatinine 0.86 (0.52-1.04) mg/dL Est GFR (CKD-EPI)AfAm 79 (>60 ml/min/1.73 sqM) Est GFR (CKD-EPI)NonAf 69 (>60 ml/min/1.73 sqM) Glucose 106 H (74-99) mg/dL Calcium 9.3 (8.4-10.2) mg/dL Total Bilirubin 0.5 (0.2-1.3) mg/dL AST 19 (14-36) U/L ALT 24 (9-52) U/L Alkaline Phosphatase 160 H (38-126) U/L Total Protein 7.4 (6.3-8.2) g/dL Albumin 4.1 (3.5-5.0) g/dL Amylase 59 (30-110) U/L Lipase 61 (23-300) U/L Urine Color Yellow Urine Appearance Clear (Clear) Urine pH 5.5 (5.0-8.0) Ur Specific [place] 1.028 (1.001-1.035) Urine Protein 1+ H (Negative) Urine Glucose (UA) Negative (Negative) Urine Ketones 1+ H (Negative) Urine Blood Trace H (Negative) Urine Nitrite Negative (Negative) Urine Bilirubin Negative (Negative) Urine Urobilinogen <2.0 (<2.0) mg/dL Ur Leukocyte Esterase Small H (Negative) Urine RBC 6 H (0-5) /hpf Ur Squamous Epith Cells 5 H (0-4) /hpf Urine Mucus Rare H (None) /hpf - EKG Data -: EKG Interpreted by Mi EKG shows normal: sinus rhythm, axis (Left axis deviation), intervals (Normal), QRS complexes (Normal) Rate: normal (Rate 60 bpm) Interpretation: nonspecific ST-T wave changes, LVH Disposition Clinical Impression: Nausea and vomiting, Thoracic back pain Disposition: HOME SELF-CARE Condition: Poor Instructions (If sedation given, give patient instructions): Acute Nausea and Vomiting (ED) Prescriptions: Dicyclomine [Bentyl] 20 mg PO QID #15 tablet Ondansetron Odt [Zofran ODT] 4 mg PO Q8HR PRN #12 tab PRN Reason: Nausea traMADol HCl [Ultram] 50 mg PO Q6H PRN #20 tab PRN Reason: Pain Is patient prescribed a controlled substance at d/c from ED?: Yes When asked, does pt state using other controlled substances?: No If prescribed controlled substance>3 days was MAPS reviewed?: Prescribed <3 Days If opioid is for acute pain is fill amount 7 days or less?: Yes If Rx opioid, was Start Talking consent form obtained?: Yes Referrals: None,Stated [REFERRING] - 1-2 days Alexandru Hanks MD [STAFF PHYSICIAN] - 1-2 days
[2018-07-31 22:33] LABS: Basophils # (A) 0.1 k/uL (0-0.2); Basophils % (A) 1 %; Eosinophils # (A) 0.3 k/uL (0-0.7); Eosinophils % (A) 2 %; HCT 38.8 % (34.0-46.0); HGB 12.6 gm/dL (11.4-16.0); Lymphocytes # (A) 8.5 k/uL (1.0-4.8); Lymphocytes % (A) 61 %; MCH 29.8 pg (25.0-35.0); MCHC 32.5 g/dL (31.0-37.0); MCV 91.7 fL (80.0-100.0); Mean Platelet Volume 6.9; Monocytes # (A) 0.4 k/uL (0-1.0); Monocytes % (A) 3 %; Neutrophils # (A) 4.4 k/uL (1.3-7.7); Neutrophils % (A) 32 %; Platelet Count 187 k/uL (150-450); RBC 4.23 m/uL (3.80-5.40); RDW 13.2 % (11.5-15.5); WBC 13.8 k/uL (3.8-10.6)
[2018-07-31 22:38] VITALS: PULSE 66
[2018-07-31 22:41] LABS: Albumin 4.1 g/dL (3.5-5.0); Calcium 9.3 mg/dL (8.4-10.2); Potassium 3.5 mmol/L (3.5-5.1); Total Bilirubin 0.5 mg/dL (0.2-1.3); Total Protein 7.4 g/dL (6.3-8.2)
[2018-07-31 23:06] LABS: Appearance,Urine Clear (Clear); Bilirubin,Urine Negative (Negative); Blood,Urine Trace (Negative); Color,Urine Yellow; Glucose,Urine (UA) Negative (Negative); Ketones,Urine 1+ (Negative); Leukocyte Esterase,Urine Small (Negative); Mucus,Urine Rare /hpf; Nitrite,Urine Negative (Negative); PH, Urine 5.5 (5.0-8.0); Protein,Urine 1+ (Negative); RBC,Urine 6 /hpf (0-5); Specific Gravity,Urine 1.028 (1.001-1.035); Squamous Epithelial Cell,Urine 5 /hpf (0-4); Urobilinogen,Urine <2.0 mg/dL (<2.0)
[2018-07-31 23:09] LABS: Poikilocytosis (M) Present; Rouleaux Present
[2018-07-31] MEDS ORDERED: SODIUM CHLORIDE 0.9% 500 ML 500 ML IV STA (23:19)
[2018-08-01 01:12] VITALS: BP 193/72; RESP 19
== END 2018-08-01 01:00 | disposition home or self-care (01) ==
LOC: EC 21:29
DX: R11.2 Nausea with vomiting, unspecified (principal); M54.6 Pain in thoracic spine; E11.9 Type 2 diabetes mellitus without complications; F03.90 Unspecified dementia, unspecified severity, without behavioral disturbance, psychotic disturbance, mood disturbance, and anxiety; F41.9 Anxiety disorder, unspecified; F32.9 Major depressive disorder, single episode, unspecified; Z79.01 Long term (current) use of anticoagulants; Z79.84 Long term (current) use of oral hypoglycemic drugs; Z79.899 Other long term (current) drug therapy; Z88.1 Allergy status to other antibiotic agents; Z88.2 Allergy status to sulfonamides; Z91.040 Latex allergy status; Z88.4 Allergy status to anesthetic agent; Z95.1 Presence of aortocoronary bypass graft; Z85.6 Personal history of leukemia
CPT/HCPCS: 36415; 93005; 80053; 82150; 83690; 85025; 81001; 99284; 96374; J2405